=== PATIENT | female | born 1995 | race Caucasian/White ===

== ENCOUNTER 2020-01-09 17:47 | Emergency (ER) | payer OTHER ==
[~2020-01-09] VITALS: Ht 167.6 cm; Wt 59.0 kg
[~2020-01-09 17:47] MED LIST: ACETAMINOPHEN-1 EAC1 PO; APAP W/CODEINE1 TA2 PO; BACTRIM DS TAB1 EACH PO; BUTALB-APAP-CA1 EACH PO; ERYTHROMYCIN E3.5 G1 OPHTHALMIC; IBUPROFEN 200200 M1 PO; IBUPROFEN 600600 M1 PO; NAPROSYN500 MG PO; NORFLEX100 MG PO; ONDANSETRON HCL4 M2 PO; PENICILLIN V P500 MG PO; PHENERGAN 25 MG25 M1 PO; ZOFRAN ODT4 MG PO
[2020-01-09] MEDS ORDERED: ZOFRAN 4 MG ORAL4 MG PO (19:59)
[2020-01-09 20:08] VITALS: BP 103/58
== END 2020-01-09 20:08 | disposition home or self-care (01) ==
LOC: M.ERS 17:47
DX: G43.909 Migraine, unspecified, not intractable, without status migrainosus (principal); R11.2 Nausea with vomiting, unspecified